=== PATIENT | female | born 1960 | race Caucasian/White ===

== ENCOUNTER 2016-07-06 19:06 | Emergency (ER) | payer OTHER ==
[~2016-07-06] VITALS: Ht 167.6 cm; Wt 77.4 kg
[2016-07-06 19:22] VITALS: Ht 167.6 cm; Wt 77.4 kg
[2016-07-06] MEDS ORDERED: LEVALBUTEROL (NEB) 1.25 MG/0.5 ML AMP INH STA (22:48)
[2016-07-06] MEDS ORDERED: IPRATROPIUM (NEB) 0.5 MG/2.5 ML AMP INH STA (22:55)
[2016-07-06] MEDS ORDERED: METHYLPREDNISOLONE 125 MG INJ IM ONE (23:00)
[2016-07-06] MEDS ORDERED: ACETAMINOPHEN 325 MG TAB PO ONE (23:30)
--- NOTE | 2016-07-07 01:17 | RADRPT ---
PROCEDURE: XR Chest. CLINICAL INDICATION: Asthma exacerbation. TECHNIQUE: Single frontal view of the chest was obtained COMPARISON: None FINDINGS: The heart and mediastinum are within normal limits. The lungs are clear. There is no pleural effusion or pneumothorax. IMPRESSION: No acute disease. RPTAT: [facility] Physician [place] Date Time Electronically viewed and signed by Khadijah Loera Physician on 07/07/2016 01:17 RS/
[2016-07-07] MEDS ORDERED: BENZ100C70 PO (01:31)
[2016-07-07] MEDS ORDERED: ALBU8.5H3 INH (01:31)
[2016-07-07] MEDS ORDERED: PRED20TA PO (01:31)
--- NOTE | 2016-07-07 01:35 | ERD ---
ER Documentation Chief Complaint Date/Time DATE: 07/07/16 TIME: 01:32 Chief Complaint cough x 2 days HPI 56-year-old transgender female with a past medical history of hypertension presents to the ED complaining of a cough that started 2 days ago. States that she started to feel like she has wheezing but states that she has not had asthma for the last 15 years. 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 States that previous surgeries include breast implantation , tracheal for his surgery and her confirmation. States that physician is Dr. Burton. Denies any smoking, alcohol use, drug use. ROS All systems reviewed and are negative except as per history of present illness. Medications Home Meds Active Scripts Albuterol Sulfate* (Proair HFA*) 8.5 Gm Hfa.aer.ad, 2 PUFF INH Q4, #1 INHALER Prov:JEANNINE CUNHA PA-C 07/07/16 Benzonatate* (Tessalon Perle*) 100 Mg Capsule, 100 MG PO Q8H Y for COUGH, #20 CAP Prov:JEANNINE CUNHA PA-C 07/07/16 Prednisone* (Prednisone*) 20 Mg Tab, 40 MG PO DAILY for 4 Days, TAB Prov:JEANNINE CUNHA PA-C 07/07/16 Allergies Allergies: Coded Allergies: No Known Allergy (Unverified , 07/06/16) PMhx/Soc History of Surgery: Yes (GENDER CHANGE, BREAST AUG, TRACHIAL SX) Anesthesia Reaction: No Hx Neurological Disorder: No Hx Respiratory Disorders: Yes (ASTHMA A CHILD) Hx Cardiac Disorders: Yes (HTN) Hx Psychiatric Problems: No Hx Miscellaneous Medical Probl: No Hx Alcohol Use: No Hx Substance Use: No Hx Tobacco Use: No Smoking Status: Never smoker Physical Exam Vitals Vital Signs Date Time Temp Pulse Resp B/P Pulse Ox O2 Delivery O2 Flow Rate FiO2 07/07/16 02:04 99.0 95 16 128/64 96 Room Air 07/06/16 23:05 96 20 100 21 07/06/16 19:22 99.8 106 20 161/80 98 Physical Exam Const: Eez-tau-eihichfws, well-nourished. In no acute distress. Head: Atraumatic, normocephalic Eyes: Normal Conjunctiva without injection. No purulent discharge. PERRL. EOMI ENT: Normal external ear. Ear canal without erythema. Tympanic membrane pearly purdy without effusion or bulging. Nasal canal clear with normal turbinates. Moist oropharynx without tonsillar exudates. Non-erythematous pharynx. Uvula midline. No drooling. No trismus. Neck: Full range of motion. No meningismus. No cervical lymphadenopathy. Resp: Bilateral wheezing., rhonchi, rales, or crackles. No accessory muscle use. No retractions. Cardio: Regular rate and rhythm. No murmurs, rubs or gallops. Abd: Soft, non tender, non distended. Normal bowel sounds. No palpable masses. No rebound tenderness. No guarding. Skin: No petechiae or rashes Back: No midline tenderness. No CVA tenderness. Ext: No cyanosis, or edema. Neur: Awake and alert. Psych: Normal Mood and Affect Results 24 hrs Current Medications Medications (Trade) Dose Ordered Sig/Yuli Route PRN Reason Start Time Stop Time Status Last Admin Dose Admin Levalbuterol (Xopenex Neb) 5 mg ONCE STAT INH 07/06/16 22:48 07/06/16 22:50 DC 07/06/16 23:04 Methylprednisolone Sodium Succinate (Solu-Medrol) 125 mg ONCE ONCE IM 07/06/16 23:00 07/06/16 23:01 DC 07/06/16 23:00 Ipratropium [place] (Atrovent 0.02% (Neb)) 1 mg ONCE STAT INH 07/06/16 22:55 07/06/16 22:57 DC 07/06/16 23:05 Acetaminophen (Tylenol Tab) 650 mg ONCE ONCE PO 07/06/16 23:30 07/06/16 23:31 DC 07/06/16 23:04 Procedures/MDM This is a 56-year-old female past medical history of hypertension presents to the ED complaining of a cough that started 2 days ago. Patient is afebrile and nontoxic-appearing. Patient has normal vital signs. A breathing treatment consisting of Xopenex 5 mg continuous, 0.5 mg Atrovent was ordered to treat patient. 125 mg was also ordered to further treat patient. A chest x-ray was ordered to further evaluate patient. PROCEDURE: XR Chest. CLINICAL INDICATION: Asthma exacerbation. TECHNIQUE: Single frontal view of the chest was obtained COMPARISON: None FINDINGS: The heart and mediastinum are within normal limits. The lungs are clear. There is no pleural effusion or pneumothorax. IMPRESSION: No acute disease. This patient presents to the ED with symptoms consistent with a viral acute upper respiratory infection. Patient is afebrile and has normal vital signs. Patient's physical exam include lungs which were clear to auscultation and a normal pulse oximetry. There is a low suspicion for pneumonia, pneumothorax, pulmonary embolism, epiglottitis, otitis media, otitis externa, viral/strep pharyngitis, sinusitis, peritonsillar abscess, mastoiditis, retropharyngeal abscess, meningitis, sepsis, acute abdomen or other emergent conditions. Fluids , rest, and symptomatic treatment are recommended for the management of patient' s symptoms. Discharge medications: Tessalon Perles, Proair, Prednisone Patient was instructed to return to the ED for any new or worsening symptoms. They should otherwise follow up with the primary care provider within 1-2 days. The patient's questions were answered at the time of discharge. Patient understood and agreed with discharge management. Departure Diagnosis: Primary Impression: URI (upper respiratory infection) URI type: unspecified URI Qualified Code: J06.9 - Upper respiratory tract infection, unspecified type Additional Impression: Wheezing Condition: Stable Patient Instructions: Uri, Viral W/ Wheezing (Adult) Referrals: [facility] YOU HAVE RECEIVED A MEDICAL SCREENING EXAM AND THE RESULTS INDICATE THAT YOU DO NOT HAVE A CONDITION THAT REQUIRES URGENT TREATMENT IN THE EMERGENCY DEPARTMENT. FURTHER EVALUATION AND TREATMENT OF YOUR CONDITION CAN WAIT UNTIL YOU ARE SEEN IN YOUR DOCTORS OFFICE WITHIN THE NEXT 1-2 DAYS. IT IS YOUR RESPONSIBILITY TO MAKE AN APPOINTMENT FOR FOLOW-UP CARE. IF YOU HAVE A PRIMARY DOCTOR --you should call your primary doctor and schedule an appointment IF YOU DO NOT HAVE A PRIMARY DOCTOR YOU CAN CALL OUR PHYSICIAN REFERRAL HOTLINE AT IF YOU CAN NOT AFFORD TO SEE A PHYSICIAN YOU CAN CHOSE FROM THE FOLLOWING [facility] [address] [facility] [address] [facility] [facility] [address] [facility] [address] [facility] [address] [facility] [facility] [address] [facility] [facility] YOU HAVE RECEIVED A MEDICAL SCREENING EXAM AND THE RESULTS INDICATE THAT YOU DO NOT HAVE A CONDITION THAT REQUIRES URGENT TREATMENT IN THE EMERGENCY DEPARTMENT. FURTHER EVALUATION AND TREATMENT OF YOUR CONDITION CAN WAIT UNTIL YOU ARE SEEN IN YOUR DOCTORS OFFICE WITHIN THE NEXT 1-2 DAYS. IT IS YOUR RESPONSIBILITY TO MAKE AN APPOINTMENT FOR FOLOW-UP CARE. IF YOU HAVE A PRIMARY DOCTOR --you should call your primary doctor and schedule and appointment IF YOU DO NOT HAVE A PRIMARY DOCTOR YOU CAN CALL OUR PHYSICIAN REFERRAL HOTLINE AT . IF YOU CAN NOT AFFORD TO SEE A PHYSICIAN YOU CAN CHOSE FROM THE FOLLOWING [facility] INSTITUTIONS: [facility] [address] [place] [address] [facility] [address] [place] [address] [facility] + [facility] [address] [place] [address] [facility] URGENT CARE/SPECIALTIES Additional Instructions: FOLLOW UP WITH YOUR PRIMARY CARE PHYSICIAN TOMORROW for further evaluation for possible asthma. Return to this facility if you are not improving as expected. JEANNINE CUNHA PA-C Jul 07, 2016 01:35
[2016-07-07 02:04] VITALS: BP 128/64; PULSE 95; RESP 16; TEMP 99
== END 2016-07-07 02:05 | disposition home or self-care (01) ==
LOC: FTE 19:06
DX: J06.9 Acute upper respiratory infection, unspecified (principal); R06.2 Wheezing; I10 Essential (primary) hypertension
CPT/HCPCS: 71010; 94644; 96372; 99284; J2930